=== PATIENT | male | born 1960 | race Caucasian/White ===

== ENCOUNTER 2019-01-27 07:51 | Day surgery (SDC) | payer OTHER ==
[2019-01-24 14:32] VITALS: BMI 23.5
[2019-01-27] VITALS (8 sets, daily range): BP systolic 115–142; BP diastolic 73–88; PULSE 59–74; RESP 14–20; Ht 162.6 cm; Wt 65.8 kg
[~2019-01-27] VITALS: Ht 162.6 cm; Wt 65.8 kg
[~2019-01-27 07:51] MED LIST: CEFAZOLIN 2 GM/50 ML (PMX) 50 ML IVPB ONE; OMEP20CA16 PO; SOD CHLORIDE 0.9% 1,000 ML IV ONE
--- NOTE | 2019-01-27 10:17 | PREAC ---
Date/Time of Note Date/Time of Note DATE: 01/27/19 TIME: 10:17 Anesthesia Eval and Record Evaluation Time Pre-Procedure Interview DATE: 01/27/19 TIME: 10:17 Age 58 Sex male NPO: 8 hrs Preoperative diagnosis scalp mass Planned procedure scalp mass excision Past Medical History Past Medical History: Includes Cardio: HTN Surgery & Anesthesia Issues No known issue Meds Anticoagulation: No Beta Roxanne within 24 hr: No Reason Beta Roxanne not given: Pt. not on B-Roxanne Discontinued Reported Medications Omeprazole* (Omeprazole*) 20 Mg Capsule.dr, 20 MG PO DAILY 08/04/13 Current Medications Cefazolin Sodium/ Dextrose 50 ml @ 100 mls/hr PRE-OP ONCE IVPB ; Start 01/27/19 at 10:30; Stop 01/27/19 at 10:59 Sodium Chloride 1,000 ml @ 75 mls/hr [id number] ONCE IV Last administered on 01/27/19at 09:18; Admin Dose 75 MLS/HR; Start 01/27/19 at 10:30; Stop 01/27/19 at 23:49 Meds reviewed: Yes Allergies Coded Allergies: No Known Allergy (Unverified , 01/27/19) Allergies Reviewed: Yes Labs/Studies Labs Reviewed: Reviewed by anesthesiologist test: N/A Studies: ECG Pre-procedure Exam Last vitals Vital Signs Date Temp Pulse Resp B/P (MAP) Pulse Ox O2 O2 Flow FiO2 Time Delivery Rate 01/27/19 97.2 60 16 142/88 99 Room Air 09:22 (106) Airway: Adequate mouth opening, Adequate thyromental dist Mallampati: Mallampati II Teeth: Normal Lung: Normal Heart: Normal ASA Physical Status ASA physical status: 2 Emergency: None Planned Anesthetic General/MAC: Mask, ETT, MAC Pre-operative Attestations Prior to commencing anesthesia and surgery, the patient was re-evaluated, there was verification of: *The patient's identity *The results of appropriate recent lab work and preoperative vital signs *The above evaluation not changing prior to induction *Anesthetic plan, risk benefits, alternative and complications discussed with patient/family; questions answered; patient/family understands, accepts and wishes to proceed. BELLA ENRIQUE Jan 27, 2019 10:17
[2019-01-27] MEDS ORDERED: BUPIVACAINE 0.25% (MPF) 30 ML INJ ONE (10:22)
[2019-01-27] MEDS ORDERED: LIDOCAINE 1%/EPI 30 ML INJ ONE (10:22)
[2019-01-27] MEDS ORDERED: METOCLOPRAMIDE 10 MG INJ IV PRN (10:30)
[2019-01-27] MEDS ORDERED: ALBUTEROL 0.083% (NEB) 2.5 MG/3 ML AMP HHN PRN (10:30)
[2019-01-27] MEDS ORDERED: FENTAnyl 50 MCG/ML VIAL IV PRN ×2 (10:30)
[2019-01-27] MEDS ORDERED: DIPHENHYDRAMINE 50 MG INJ IV PRN (10:30)
[2019-01-27] MEDS ORDERED: HYDROmorphONE 1 MG/5 ML IV SYRINGE IV PRN ×3 (10:30)
[2019-01-27] MEDS ORDERED: SOD CHLORIDE 0.9% 1,000 ML IV ONE (10:30)
[2019-01-27] MEDS ORDERED: ONDANSETRON 4 MG INJ IV PRN ×2 (10:30→11:30)
[2019-01-27] MEDS ORDERED: CEFAZOLIN 2 GM/50 ML (PMX) 50 ML IVPB ONE (10:30)
[2019-01-27] MEDS ORDERED: MIDAZOLAM 1 MG/ML 2 ML INJ ONE (10:36)
[2019-01-27] MEDS ORDERED: FENTAnyl 50 MCG/ML VIAL ONE ×2 (10:36→10:51)
[2019-01-27] MEDS ORDERED: CEFAZOLIN 1 GM INJ ONE (10:50)
[2019-01-27] MEDS ORDERED: NEOMYC/POLYMYX/BACIT 3.5GM OPH OINT ONE (10:59)
[2019-01-27] MEDS ORDERED: NEOMYC/POLYMYX/BACIT 30 GM OINT ONE (11:00)
--- NOTE | 2019-01-27 11:12 | OPR ---
Date/Time of Note Date/Time of Note DATE: 01/27/19 TIME: 11:09 Operative Report Procedure Date: Jan 27, 2019 Preoperative Diagnosis Scalp mass Postoperative Diagnosis Scalp mass Operation/Procedure Performed Excision of scalp mass Surgeon see signature line Brace End [employer] Former None Anesthesia Type: MAC Anesthesiologist: BELLA ENRIQUE Estimated Blood Loss: minimal Transfusion none Specimen Scalp mass Grafts/Implants none Complications none Pt Condition Post Procedure: stable Disposition: PACU Indications Patient is a 58-year-old male who presents to the office complaining of a mass of the right temporal scalp area. This is been present for several years. He reported recent growth and discomfort. The patient was scheduled for elective excision for symptom relief and definitive pathological diagnosis. All risks and benefits of the procedure including, but not limited to: Wound infection, excessive bleeding, postoperative seroma/hematoma formation, mass recurrence, etc. were all explained to the patient in full detail. The patient fully understood and wished to proceed with the procedure. Informed consent was obtained. Procedure Description The patient was brought to the operating room and placed on the operating table in supine fashion. Bilateral sequential compression devices were placed on both lower extremities. A dose of broad-spectrum perioperative intravenous antibiotics was given. The mass which was located in the right temporal scalp was preoperatively marked and confirmed with the patient in the holding area. After achieving adequate sedation the patient's scalp was then prepped and draped in standard surgical fashion. After performance of the surgical timeout, 1% lidocaine with epinephrine was injected over the area of the mass creating a field block. Incision was then made over the mass using a 15 blade scalpel. Incision was carried down through the skin and dermis. A calcified mass was identified extending from the dermis to the subcutaneous tissues. It was dissected free of surrounding tissues, transected at its base and passed off the field the specimen. It measured proximally a centimeter and a half in maximal dimension. Hemostasis was then inspected for and noted to be adequate. The wound cavity was then irrigated and the irrigant returned clear. 0.25% Marcaine was then injected around the incision site. The incision was then reapproximated using interrupted 3-0 nylon sutures. Incision was cleaned and bacitracin ointment was applied. The patient was then transferred to the recovery room in stable condition. All counts were correct at the end of the case x2. AARTI PALMER MD Jan 27, 2019 11:12
[2019-01-27] MEDS ORDERED: IBUPROFEN 600 MG TAB PO PRN (11:30)
--- NOTE | 2019-01-28 07:33 | PAC ---
Date/Time of Note Date/Time of Note DATE: 01/28/19 TIME: 07:32 Post-Anesthesia Notes Post-Anesthesia Note Last documented vital signs Vital Signs Date Temp Pulse Resp B/P (MAP) Pulse Ox O2 O2 Flow FiO2 Time Delivery Rate 01/27/19 97.2 59 18 138/74 95 11:39 (95) 01/27/19 Room Air 11:35 Activity: WNL Respiratory function: WNL Cardiovascular function: WNL Mental status: Baseline Pain reasonably controlled: Yes Hydration appropriate: Yes Nausea/Vomiting absent: Yes BELLA ENRIQUE Jan 28, 2019 07:33
== END 2019-01-27 12:30 | disposition home or self-care (01) ==
LOC: SDS 07:51
PROVIDERS: ATTEND Surgery
DX: D23.4 Other benign neoplasm of skin of scalp and neck (principal); I10 Essential (primary) hypertension
CPT/HCPCS: 21011; 88307; 88311; J0690; J2250; J3010; Z7512; Z7610